=== PATIENT | female | born 1930 | race Caucasian/White ===

== ENCOUNTER 2017-01-31 17:19 | Inpatient (IN) | payer MEDICARE ==
[2017-01-31] MEDS ORDERED: SODIUM CHLORIDE 0.9% 1,000 ML IV ONE ×2 (17:36)
[2017-01-31] MEDS ORDERED: LORazepam 2 MG/ML INJ IV STA (17:38)
--- NOTE | 2017-01-31 17:42 | ED ---
Fall HPI - General Source: patient, family, EMS, RN notes reviewed, old records reviewed Mode of arrival: ambulatory <Yumiko Copeland - Last Filed: 02/01/17 02:35> <GeoffreyEmil Gayle - Last Filed: 02/01/17 04:44> - General Chief Complaint: Fall Stated Complaint: Fall Time Seen by Provider: 01/31/17 17:29 - History of Present Illness Initial Comments: This is an 86-year-old female presents emergency Department after a fall. Patient family reports that she fell in the afternoon however patient when she fell around midnight. Patient was found by her granddaughter. She states that there is no loss conscious. She did hit her head. Patient's family reports that she hasn't been taking her medications as she is supposed to. She does have a history of a pacemaker and a cardiac valve replacement. Patient states that she feels very nervous and she cannot breathe. Upon return to emergency room and she was placed in a c-collar. Patient became claustrophobic and shortness of breath due to the c-collar being placed on her neck. At this time I did assess patient and reviewed the rigid c-collar into a soft collar for patient's safety. Also relates that she's had episodes of diarrhea and complains of some abdominal pain. She reports that when she fell she also hit her right shoulder.Patient denies any recent fever, chills, shortness of breath , chest pain, nausea vomiting, numbness or tingling, dysuria or hematuria, constipation or diarrhea, headaches or visual changes, or any other current symptoms (Yumiko Copeland) - Related Data Home Medications Medication Instructions Recorded Confirmed Aspirin 81 mg PO DAILY 04/16/14 01/31/17 Furosemide [Lasix] 40 mg PO DAILY 04/16/14 01/31/17 Lisinopril [Zestril] 5 mg PO DAILY 04/16/14 01/31/17 Metoprolol Tartrate 50 mg PO BID 04/16/14 01/31/17 Naproxen Sodium [Aleve] 440 mg PO DAILY 04/16/14 01/31/17 Simvastatin 20 mg PO DAILY 04/16/14 01/31/17 Cholecalciferol [Vitamin D3] 1,000 unit PO DAILY 01/31/17 01/31/17 Loperamide [Imodium] 2 mg PO BID 01/31/17 01/31/17 glipiZIDE [Glucotrol] 5 mg PO AC-BID 01/31/17 01/31/17 Allergies Allergy/AdvReac Type Severity Reaction Status Date / Time Penicillins Allergy Swelling Verified 01/31/17 17:45 adhesive AdvReac Unknown Verified 01/31/17 17:45 Review of Systems ROS Other: All systems not noted in ROS Statement are negative. <Yumiko Copeland - Last Filed: 02/01/17 02:35> ROS Other: All systems not noted in ROS Statement are negative. <GeoffreyEmil Gayle - Last Filed: 02/01/17 04:44> ROS Statement: Those systems with pertinent positive or pertinent negative responses have been documented in the HPI. Past Medical History Past Medical History: COPD, Diabetes Mellitus, Hyperlipidemia, Hypertension Additional Past Medical History / Comment(s): 04/20/14 Pt here today for generator change permanent pacemaker. Other HX: Type [address] BELTRÁN H&P, some short term memory issues. History of Any Multi-Drug Resistant Organisms: None Reported Past Surgical History: Appendectomy, Hernia Repair, Hysterectomy, Joint Replacement, Orthopedic Surgery, Pacemaker Additional Past Surgical History / Comment(s): 04/20/14 Generator change pacemaker. 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 <Yumiko Copeland - Last Filed: 02/01/17 02:35> General Exam Limitations: altered mental status General appearance: alert, in no apparent distress, other Head exam: Present: atraumatic, normocephalic, normal inspection Eye exam: Present: normal appearance, PERRL, EOMI. Absent: scleral icterus, conjunctival injection, periorbital swelling ENT exam: Present: normal exam, normal oropharynx, mucous membranes moist Neck exam: Present: normal inspection. Absent: tenderness, meningismus, lymphadenopathy Respiratory exam: Present: normal lung sounds bilaterally. Absent: respiratory distress, wheezes, rales, rhonchi, stridor Cardiovascular Exam: Present: regular rate, normal rhythm, normal heart sounds. Absent: systolic murmur, diastolic murmur, rubs, gallop, clicks GI/Abdominal exam: Present: soft, tenderness (diffuse abdominal tenderness), normal bowel sounds. Absent: distended, guarding, rebound, rigid Extremities exam: Present: normal inspection, full ROM, normal capillary refill , other. Absent: tenderness, pedal edema, joint swelling, calf tenderness Right Shoulder Exam: Present: normal inspection, full ROM, tenderness (to palpation of humerus. Patient has had previous surgery) Upper Arm exam: Present: normal inspection, full ROM Elbow exam: Present: normal inspection, full ROM Forearm Wrist exam: Present: normal inspection, full ROM Hand Wrist exam: Present: normal inspection, full ROM Neuro motor exam: Present: wrist extension intact, thumb opposition intact, thumb IP flexion intact, thumb adduction intact, fingers 2-5 abduction intact Back exam: Present: normal inspection, full ROM Neurological exam: Present: alert, oriented X3, CN II-XII intact Psychiatric exam: Present: normal affect, normal mood Skin exam: Present: warm, dry, intact, normal color. Absent: rash <Yumiko Copeland - Last Filed: 02/01/17 02:35> <Emil Hale - Last Filed: 02/01/17 04:44> - General Exam Comments Initial Comments: This is an 86-year-old female. (Yumiko Copeland) Course <Yumiko Copeland - Last Filed: 02/01/17 02:35> <Emil Hale - Last Filed: 02/01/17 04:44> Vital Signs 01/31/17 01/31/17 17:24 18:31 Temperature 98.7 F Pulse Rate 98 93 Respiratory 25 H 20 Rate Blood Pressure 134/99 136/85 O2 Sat by Pulse 99 97 Oximetry - Reevaluation(s) Reevaluation #1: 01/31/17 20:03 At this time patient was reevaluated. She is resting comfortably in bed. Daughter reports that she's been complaining of some right shoulder pain. When I did examine the patient's abdomen she does jump due to pain 2. Given white count elevation I'll do CT of the pelvis. (DinorahYumiko) Medical Decision Making - Lab Data Result diagrams: 01/31/17 18:13 01/31/17 18:13 - Radiology Data Radiology results: report reviewed <Yumiko Copeland - Last Filed: 02/01/17 02:35> - Lab Data Result diagrams: 01/31/17 18:13 01/31/17 18:13 <Emil Hale - Last Filed: 02/01/17 04:44> - Medical Decision Making This is an 86-year-old feel presenting to emergency Department after a fall. Unable to determine the exact time the patient fell. She reports she felt somewhat dizzy. Apparently she has not been taking her medications as prescribed patient does have history of dementia.. Upon arriving to emergency Department patient was placed in a c-collar. She was having significant anxiety attack due to the c-collar being around her neck. She did to a soft collar. Patient underwent CT brain and C-spine which was negative for any acute process, c-collar was then removed. Patient's EKG shows a paced rhythm. Cardiac enzymes were also reviewed to be normal. She does have a mild elevation in her white blood cell count of 12.8. I went to reexamine the patient she did start to complain of some abdominal pain. CT abdomen and pelvis was completed. Some showing some signs of colitis. Patient has had a history of diarrhea. As x-ray was reviewed and discussed with some signs of heart failure. BNP obtained. Patient case assessment Dr. Lofton. [facility] feels appropriate to admit the patient with IV hydration for dehydration, dizziness and further evaluation. Discussed with the family that she likely will need placement to a rehab facility as she seems that she is unable to care on her own. (Yumiko Copeland) 86-year-old female with history of dementia presents status post fall. Patient does complain of some lightheadedness. According to the patient's family she does not been able to care for herself well, they're uncertain how much she is eating and drinking on a daily basis. They to visit her regularly. Patient will be placed in observation for rehydration and reevaluation. Diagnosis: Fall , near syncope, dehydration. (Helmreich,Emil N) - Lab Data Lab Results 01/31/17 01/31/17 01/31/17 Range/Units 18:13 18:13 18:13 WBC 12.7 H (3.8-10.6) k/uL RBC 5.45 H (3.80-5.40) m/uL Hgb 15.7 (11.4-16.0) gm/dL Hct 50.4 H (34.0-46.0) % MCV 92.6 (80.0-100.0) fL MCH 28.9 (25.0-35.0) pg MCHC 31.2 (31.0-37.0) g/dL RDW 15.0 (11.5-15.5) % Plt Count 262 (150-450) k/uL Neutrophils % 82 % Lymphocytes % 11 % Monocytes % 4 % Eosinophils % 1 % Basophils % 1 % Neutrophils # 10.4 H (1.3-7.7) k/uL Lymphocytes # 1.4 (1.0-4.8) k/uL Monocytes # 0.6 (0-1.0) k/uL Eosinophils # 0.1 (0-0.7) k/uL Basophils # 0.1 (0-0.2) k/uL PT 11.3 (9.0-12.0) sec INR 1.1 (<1.2) APTT 21.6 L (22.0-30.0) sec Sodium 140 (137-145) mmol/L Potassium 4.2 (3.5-5.1) mmol/L Chloride 105 (98-107) mmol/L Carbon Dioxide 21 L (22-30) mmol/L Anion Gap 14 mmol/L BUN 12 (7-17) mg/dL Creatinine 0.90 (0.52-1.04) mg/dL Est GFR (MDRD) Af Amer >60 (>60 ml/min/1.73 sqM) Est GFR (MDRD) Non-Af 59 (>60 ml/min/1.73 sqM) Glucose 151 H (74-99) mg/dL Calcium 9.8 (8.4-10.2) mg/dL Magnesium 1.7 (1.6-2.3) mg/dL Total Bilirubin 1.8 H (0.2-1.3) mg/dL AST 22 (14-36) U/L ALT 35 (9-52) U/L Alkaline Phosphatase 94 (38-126) U/L Total Creatine Kinase (30-135) U/L CK-MB (CK-2) (0.0-2.4) ng/mL CK-MB (CK-2) Rel Index Troponin I (0.000-0.034) ng/mL NT-Pro-B Natriuret Pep pg/mL Total Protein 6.4 (6.3-8.2) g/dL Albumin 4.0 (3.5-5.0) g/dL Urine Color Urine Appearance (Clear) Urine pH (5.0-8.0) Ur Specific [place] (1.001-1.035) Urine Protein (Negative) Urine Glucose (UA) (Negative) Urine Ketones (Negative) Urine Blood (Negative) Urine Nitrite (Negative) Urine Bilirubin (Negative) Urine Urobilinogen (<2.0) mg/dL Ur Leukocyte Esterase (Negative) 01/31/17 01/31/17 01/31/17 Range/Units 18:13 18:13 18:30 WBC (3.8-10.6) k/uL RBC (3.80-5.40) m/uL Hgb (11.4-16.0) gm/dL Hct (34.0-46.0) % MCV (80.0-100.0) fL MCH (25.0-35.0) pg MCHC (31.0-37.0) g/dL RDW (11.5-15.5) % Plt Count (150-450) k/uL Neutrophils % % Lymphocytes % % Monocytes % % Eosinophils % % Basophils % % Neutrophils # (1.3-7.7) k/uL Lymphocytes # (1.0-4.8) k/uL Monocytes # (0-1.0) k/uL Eosinophils # (0-0.7) k/uL Basophils # (0-0.2) k/uL PT (9.0-12.0) sec INR (<1.2) APTT (22.0-30.0) sec Sodium (137-145) mmol/L Potassium (3.5-5.1) mmol/L Chloride (98-107) mmol/L Carbon Dioxide (22-30) mmol/L Anion Gap mmol/L BUN (7-17) mg/dL Creatinine (0.52-1.04) mg/dL Est GFR (MDRD) Af Amer (>60 ml/min/1.73 sqM) Est GFR (MDRD) Non-Af (>60 ml/min/1.73 sqM) Glucose (74-99) mg/dL Calcium (8.4-10.2) mg/dL Magnesium (1.6-2.3) mg/dL Total Bilirubin (0.2-1.3) mg/dL AST (14-36) U/L ALT (9-52) U/L Alkaline Phosphatase (38-126) U/L Total Creatine Kinase 88 (30-135) U/L CK-MB (CK-2) 1.2 (0.0-2.4) ng/mL CK-MB (CK-2) Rel Index 1.4 Troponin I 0.014 (0.000-0.034) ng/mL NT-Pro-B Natriuret Pep 814 pg/mL Total Protein (6.3-8.2) g/dL Albumin (3.5-5.0) g/dL Urine Color Yellow Urine Appearance Clear (Clear) Urine pH 5.5 (5.0-8.0) Ur Specific [place] 1.014 (1.001-1.035) Urine Protein Negative (Negative) Urine Glucose (UA) Negative (Negative) Urine Ketones 1+ H (Negative) Urine Blood Negative (Negative) Urine Nitrite Negative (Negative) Urine Bilirubin Negative (Negative) Urine Urobilinogen <2.0 (<2.0) mg/dL Ur Leukocyte Esterase Negative (Negative) 01/31/17 18:07 EKG shows a ventricular paced rhythm. Ventricular rate 90 beats per. We're unable to her milliseconds. QRS ratio 70 ms. QT QTc is 452 ms. (Yumiko Copeland) - Radiology Data Multiple areas of colonic wall thickening correlate for colitis. Uncomplicated diverticulosis;. Hepatomegaly and fatty infiltration of the liver. Multiple small lesions within the left kidney likely representing cysts. This could be From ultrasound. Fatty application of the pancreas. Small mobile chlorinating fat only. Moderate level of scoliosis noted understands in the spine. Her sed rate is evidence of heart failure. Pelvis x-ray was negative for any acute Valley's. Right shoulder x-ray was reviewed and shows no evidence of any abnormalities. Evidence of previous surgical changes. (Yumiko Copeland) Disposition Time of Disposition: 22:19 <Yumiko Copeland - Last Filed: 02/01/17 02:35> <Emil Hale - Last Filed: 02/01/17 04:44> Clinical Impression: Dizziness, Falls, Dehydration, Near syncope Disposition: ADMITTED IP TO THIS [facility] Condition: Stable
[2017-01-31 18:29] LABS: Basophils # (A) 0.1 k/uL (0-0.2); Basophils % (A) 1 %; CH 30.6; CHCM 33.3; Eosinophils # (A) 0.1 k/uL (0-0.7); Eosinophils % (A) 1 %; HCT 50.4 % (34.0-46.0); HDW 2.62; HGB 15.7 gm/dL (11.4-16.0); Luc # (Auto) 0.14; Luc % (Auto) 1; Lymphocytes # (A) 1.4 k/uL (1.0-4.8); Lymphocytes % (A) 11 %; MCH 28.9 pg (25.0-35.0); MCHC 31.2 g/dL (31.0-37.0); MCV 92.6 fL (80.0-100.0); Mean Platelet Volume 9.6; Monocytes # (A) 0.6 k/uL (0-1.0); Monocytes % (A) 4 %; Neutrophils # (A) 10.4 k/uL (1.3-7.7); Neutrophils % (A) 82 %; RBC 5.45 m/uL (3.80-5.40); WBC 12.7 k/uL (3.8-10.6); WBC (Perox) 9.72
[2017-01-31 18:35] LABS: ALT 35 U/L (9-52); AST 22 U/L (14-36); Alkaline Phosphatase 94 U/L (38-126); Anion Gap 14 mmol/L; Blood Urea Nitrogen 12 mg/dL (7-17); Calcium 9.8 mg/dL (8.4-10.2); Carbon Dioxide 21 mmol/L (22-30); Chloride 105 mmol/L (98-107); Glucose 151 mg/dL (74-99); Magnesium 1.7 mg/dL (1.6-2.3); Non-African American GFR(MDRD) 59 (>60 ml/min/1.73 sqM); Potassium 4.2 mmol/L (3.5-5.1); Sodium 140 mmol/L (137-145); Total Bilirubin 1.8 mg/dL (0.2-1.3); Total Protein 6.4 g/dL (6.3-8.2)
[2017-01-31 18:36] LABS: INR 1.1 (<1.2); Prothrombin Time 11.3 sec (9.0-12.0)
[2017-01-31 18:46] LABS: Appearance,Urine Clear (Clear); Bilirubin,Urine Negative (Negative); Glucose,Urine (UA) Negative (Negative); Ketones,Urine 1+ (Negative); Leukocyte Esterase,Urine Negative (Negative); Nitrite,Urine Negative (Negative); PH, Urine 5.5 (5.0-8.0); Protein,Urine Negative (Negative); Specific Gravity,Urine 1.014 (1.001-1.035); UA Billing (MACRO vs. MICRO) CHEM; Urobilinogen,Urine <2.0 mg/dL (<2.0)
[2017-01-31 19:00] LABS: Creatine Kinase MB 1.2 ng/mL (0.0-2.4); Partial Thromboplastin Time 21.6 sec (22.0-30.0); Troponin I 0.014 ng/mL (0.000-0.034)
--- NOTE | 2017-01-31 19:16 | XR ---
EXAMINATION TYPE: XR chest 2V DATE OF EXAM: 01/31/2017 HISTORY: fall. REFERENCE: NONE. FINDINGS: There is a bipolar pacemaker place on the left. The heart is enlarged. There is vascular congestion and pulmonary edema. There is been a midline sternotomy. IMPRESSION: FINDINGS MOST CONSISTENT WITH CONGESTIVE HEART FAILURE.
--- NOTE | 2017-01-31 19:16 | XR ---
EXAMINATION TYPE: XR pelvis AP view , ONE VIEW DATE OF EXAM ORDERED: 01/31/2017 HISTORY: Pain. COMPARISON: None. FINDINGS: There are degenerative changes in the hips. No fracture or dislocation is seen. Metallic c lips are seen overlying the right inguinal region. There are degenerative changes within the spine. IMPRESSION: NO ACUTE OSSEOUS LESION.
--- NOTE | 2017-01-31 19:35 | CT ---
EXAMINATION TYPE: CT brain cynthia smith DATE OF EXAM: 01/31/2017 COMPARISON: NONE HISTORY: Fall, right sided head injury. Confusion. CT DLP: 1639.00 mGycm Automated exposure control for dose reduction was used. TECHNIQUE: CT scan of the brain and cervical spine are performed without contrast. FINDINGS: Brain: There are generalized changes of sulcal prominence and ventriculomegaly, compatible with atrop hic change. There is diffuse periventricular white matter lucency, compatible with chronic white matter ischemic change. There is no acute focal lesion, mass effect or midline shift identified. I do not see evidenc e of intracranial blood. There is minimal mucosal thickening involving one of the posterior ethmoid a ir cells on the left. The mastoid air cells are clear. No depressed skull fracture is seen. CERVICAL SPINE: Visualized portions of the lungs are clear. Prevertebral soft tissues are normal. Vertebral body height is maintained. There is a minimal degenerative grade 1 spondylolisthesis of C6 on C7. Alignment is otherwise maintained.. Atlantoaxial relationships are normal. There is diffuse degenerative disc disease most marked at C5-6. There is mild, diffuse uncovertebral joint disease. There is mild facet arthropathy at C3-4 and C4-5. There is mild intervertebral foramin al narrowing on the left at C5-6. No protrusions are seen. No fractures are seen. IMPRESSION: 1. NO ACUTE INTRACRANIAL ABNORMALITY. 2. ATROPHIC CHANGE. 3. CHRONIC WHITE MATTER ISCHEMIC CHANGE. 4. MINIMAL LEFT-SIDED ETHMOIDAL SINUS MUCOSAL DISEASE. 5. NO CERVICAL FRACTURE. 6. DEGENERATIVE CHANGES WITHIN THE CERVICAL SPINE.
[2017-01-31] MEDS ORDERED: RX INFO: IV CONTRAST WAS GIVEN 1 EACH MISC MISCELLANE PRN (20:02)
--- NOTE | 2017-01-31 20:52 | XR ---
EXAMINATION TYPE: XR shoulder complete RT , 3 VIEWS DATE OF EXAM ORDERED: 01/31/2017 HISTORY: Pain. COMPARISON: None. FINDINGS: No fracture or dislocation is seen. There is postsurgical change. There is remodeling alba ges in the humeral head. IMPRESSION: 1. NO ACUTE OSSEOUS LESION. 2. POSTSURGICAL CHANGE. 3. OSTEOARTHRITIS.
[2017-01-31] MEDS ORDERED: MORPHINE SULFATE 4 MG/ML SYRINGE IVP STA (21:29)
--- NOTE | 2017-01-31 21:49 | CT ---
EXAMINATION TYPE: CT abdomen pelvis w con DATE OF EXAM: 01/31/2017 REFERENCE: NONE HISTORY: fall, pain HISTORY: Fall today. Right lower quadrant pain. CT DLP: 1605.00 mGy Automated exposure control for dose reduction was used. TECHNIQUE: Helical acquisition through the abdomen and pelvis was obtained following the oral ingesti on of without Oral Contrast and following intravenous administration of 80 mL of Visipaque 320. The d sudha was reformatted in axial, coronal and sagittal projections. FINDINGS: There is mild dependent atelectasis at the lung bases. The heart is upper limits of normal in size. There is a pacemaker in place. There is coronary artery and other vascular calcifications p resent. Within the abdomen, the liver is enlarged measuring 21 cm. Is fatty infiltrated. The gallbladder is b een removed. The spleen is unremarkable. Both adrenal glands are normal. There is a small, subcentimeter low attenuating lesion in the lower pole of the left kidney. There ar e several even smaller lesions in the lower pole. These likely represent cysts but are too small to c haracterize accurately. There is marked fatty infiltration of the pancreas. There is no significant retroperitoneal, iliac or inguinal adenopathy. The bladder is unremarkable. Uterus and ovaries are not visualized. There is diverticular change involving the sigmoid colon. There is diffuse colonic thickening involvi ng the sigmoid colon and parts of the descending colon and most of the transverse colon. The appendix is not visualized. Small bowel loops are normal. There is no free fluid and no free air. There is a tiny umbilical hernia containing fat only with a 4 mm mouth. There is a moderate levoscoliosis. There is degenerative disc disease and hypertrophic spondylosis as well as facet arthropathy. No bony destructive lesion is seen. There has been a midline sternotomy. IMPRESSION: 1. MULTIPLE AREAS OF COLONIC WALL THICKENING. PLEASE CORRELATE FOR COLITIS. 2. UNCOMPLICATED DIVERTICULOSIS OF THE SIGMOID COLON. 3. HEPATOMEGALY AND FATTY INFILTRATION OF THE LIVER. 4. MULTIPLE SMALL LESIONS WITHIN THE LEFT KIDNEY, LIKELY REPRESENTING CYSTS. THIS COULD BE CONFIRMED WITH ULTRASOUND. 5. FATTY INFILTRATION OF THE PANCREAS. 6. SMALL UMBILICAL HERNIA CONTAINING FAT ONLY. 7. MODERATE LEVOSCOLIOSIS AND DEGENERATIVE CHANGE WITHIN THE SPINE.
[2017-01-31] MEDS ORDERED: LORazepam 2 MG/ML INJ IV PRN (22:25)
[2017-01-31] MEDS ORDERED: MORPHINE SULFATE 4 MG/ML SYRINGE IV PRN (22:25)
[2017-01-31] MEDS ORDERED: NALOXONE 0.4 MG/ML 1 ML VIAL IV PRN (22:25)
[2017-01-31] MEDS ORDERED: KETOROLAC 30 MG/ML 1 ML VIAL IVP PRN (22:25)
[2017-01-31] MEDS ORDERED: IBUPROFEN 400 MG TAB PO PRN (22:25)
[2017-01-31] MEDS: SODIUM CHLORIDE 0.9% 1,000 ML IV SCH (23:36)
[2017-02-01] MEDS: SODIUM CHLORIDE 0.9% 1,000 ML IV SCH ×2 (05:23→20:06)
[2017-02-01 07:24] LABS: Glucose,Whole Blood 124 mg/dL (75-99)
[2017-02-01] MEDS ORDERED: glipiZIDE 5 MG TAB PO SCH (07:30)
[2017-02-01] MEDS: FUROSEMIDE 40 MG TAB PO SCH (08:28)
[2017-02-01] MEDS: LISINOPRIL 5 MG TAB PO SCH (08:29)
[2017-02-01] MEDS: ATORVASTATIN 10 MG TAB PO SCH (08:29)
[2017-02-01] MEDS: ASPIRIN 81 MG PO SCH (08:29)
[2017-02-01] MEDS: LOPERAMIDE 2 MG CAP PO SCH ×2 (08:29→21:27)
[2017-02-01] MEDS: METOPROLOL TARTRATE 50 MG TAB PO SCH ×2 (08:29→21:27)
[2017-02-01] MEDS: CHOLECALCIFEROL 1,000 UNIT TAB PO SCH (08:29)
[2017-02-01 08:53] VITALS: BMI 35.2
[2017-02-01] MEDS: ENOXAPARIN 40 MG/0.4 ML SYRINGE SQ SCH (11:51)
[2017-02-01 12:12] LABS: Glucose,Whole Blood 66 mg/dL (75-99)
[2017-02-01 12:24] LABS: Glucose,Whole Blood 76 mg/dL (75-99)
--- NOTE | 2017-02-01 14:06 | HP ---
HISTORY AND PHYSICAL DATE OF ADMISSION: 01/31/2017 DATE OF SERVICE: 02/01/2017 PRESENTING COMPLAINT: Fall. HISTORY OF PRESENTING COMPLAINT: A very pleasant, 86-year-old patient of Dr. Parker. History is obtained by the daughter at the bedside. Chronic stable medical conditions include COPD, diabetes, hyperlipidemia, hypertension. The patient lives by herself. Has a walker and cane at home, but walks on her own. The patient is not sure why she is here but she had fallen down, found by the granddaughter on the floor. The patient is a very pleasant, but a poor historian. Memory is not good. Daughter does state that her long-term memory is good, but short-term memory is very poor. Patient has some pain in the right shoulder. Denies any chest pain or palpitations. No focal weakness. REVIEW OF SYSTEMS: CONSTITUTIONAL: None. HEENT: Decreased hearing. RESPIRATORY: None. CARDIOVASCULAR: No chest pain. GASTROINTESTINAL: None GENITOURINARY: None. MUSCULOSKELETAL: Aches and pains in different joints. Some in the right shoulder. DERMATOLOGICAL: None. HEMATOLOGIC: None. LYMPHATIC: None. PSYCHIATRY: Forgetful. NEUROLOGICAL: Baseline on her gait. PAST MEDICAL HISTORY: COPD, diabetes, hyperlipidemia, hypertension. PAST SURGICAL HISTORY: Appendectomy, hernia repair, hysterectomy, joint replacement, bilateral total knee, right shoulder screws. SOCIAL HISTORY: Patient lives alone. No smoking. Alcohol rarely. FAMILY HISTORY: Coronary artery disease. HOME MEDICATIONS: 1. Glucotrol 5 mg p.o. b.i.d. 2. Simvastatin 20 mg p.o. daily. 3. Aleve 440 mg p.o. daily. 4. Metoprolol 50 mg p.o. b.i.d. 5. Imodium 2 mg p.o. b.i.d. 6. Zestril 5 mg p.o. daily. 7. Lasix 40 mg p.o. daily. 8. Vitamin D3, 1000 units p.o. daily. 9. Aspirin 81 mg p.o. daily. ALLERGIES: Allergies to PENICILLIN and ADHESIVE. PHYSICAL EXAMINATION: On examination, vital signs on presentation, temperature 98.7, pulse 98, respirations 25, blood pressure 134/99 pulse ox 99% on 2 L. GENERAL APPEARANCE: Well built, BMI 35.3. Sitting on the edge of bed. Comfortable. Smiling. EYES: Pupils equal. Conjunctivae normal. HENT: Oral cavity normal. NECK: JVD not raised. Mass not palpable. RESPIRATORY: Effort normal. LUNGS: Slightly decreased breath sounds. CARDIOVASCULAR: First and second sounds normal. No edema. ABDOMEN: Soft, nontender. Liver and spleen not palpable. LYMPHATIC: No lymph nodes palpable in the neck and axillae. PSYCHIATRY: Patient after some thinking knows that she in the hospital. Does not know the name. Not sure about the year, not sure about the season. Keeps smiling and laughing while talking. NEUROLOGICAL: Pupils equal. No facial asymmetry. Moving all 4 limbs. MUSCULOSKELETAL: Evidence of osteoarthritis in different joints. INVESTIGATIONS: White count 12.7, hemoglobin 15.7. Potassium 4.2. BUN and creatinine are normal. Accu- Cheks just revealed 66 and 76. ASSESSMENT: 1. Episode of patient falling down. The patient at baseline is unsteady probably from arthritis, hypoglycemia is in the differential. 2. Chronic obstructive pulmonary disease. 3. Diabetes mellitus type 2, on oral hypoglycemic. 4. Hyperlipidemia. 5. Essential hypertension. 6. Gait dysfunction. 7. Alzheimer's dementia, late onset type. PLAN: Will cut back patient's Glucotrol to 5 mg once a day. Other medications are to be continued. Did talk to her daughter at length. Patient will probably need a supervised setting. Will do a bedside cogwheel test. PT, OT seeing the patient. hot worker is involved. MMODL / IJN: [id number] /
[2017-02-01 17:18] LABS: Glucose,Whole Blood 103 mg/dL (75-99)
[2017-02-01 22:31] LABS: Glucose,Whole Blood 120 mg/dL (75-99)
[2017-02-02] MEDS: SODIUM CHLORIDE 0.9% 1,000 ML IV SCH ×4 (06:15→21:13)
[2017-02-02 07:17] LABS: Glucose,Whole Blood 127 mg/dL (75-99)
[2017-02-02] MEDS: CHOLECALCIFEROL 1,000 UNIT TAB PO SCH (09:23)
[2017-02-02] MEDS: ATORVASTATIN 10 MG TAB PO SCH (09:23)
[2017-02-02] MEDS: glipiZIDE 5 MG TAB PO SCH (09:23)
[2017-02-02] MEDS: ASPIRIN 81 MG PO SCH (09:23)
[2017-02-02] MEDS: METOPROLOL TARTRATE 50 MG TAB PO SCH ×2 (09:24→21:12)
[2017-02-02] MEDS: ENOXAPARIN 40 MG/0.4 ML SYRINGE SQ SCH (09:24)
[2017-02-02] MEDS: FUROSEMIDE 40 MG TAB PO SCH (09:24)
[2017-02-02] MEDS: LOPERAMIDE 2 MG CAP PO SCH ×2 (09:27→21:13)
[2017-02-02] MEDS: LISINOPRIL 5 MG TAB PO SCH (09:27)
[2017-02-02 11:31] LABS: Glucose,Whole Blood 103 mg/dL (75-99)
[2017-02-02 16:30] LABS: Glucose,Whole Blood 99 mg/dL (75-99)
--- NOTE | 2017-02-02 16:55 | P.PN ---
Progress Note - Text Progress Note Date: 02/02/17 DATE OF SERVICE: 02/02/2017 PRESENTING COMPLAINT: fall HISTORY OF PRESENT ILLNESS: 86-year-old patient who presented after being found by her granddaughter after a fall. Admitted for the same INTERVAL HISTORY: 02/02/2017: lying in bed appears comfortable.vital signs stable, Ambulatory with some assistance to and from the bathroom. tolerating her diet eating between 50 and 75% of her meals, Evaluated by physical therapy and would benefit from continued therapy at a subacute rehab or inpatient rehab prior to being back at home alone. Social work is submitted request to [facility] for placement this will not happen until Saturday. REVIEW OF SYSTEMS: Done for constitutional ,cardiovascular, GI, pulmonary with relevant findings as above. CURRENT MEDICATIONS aspirin, Lipitor, Lovenox, Lasix, Glucotrol, Toradol,Zestril, Imodium, Ativan, Lopressor,normal saline. PHYSICAL EXAM VITAL SIGNS: temperature 98.3, pulse 70, respiratory rate 12, blood pressure 123/64, oxygen saturation 96% on room air. GENERAL APPEARANCE: Lying in bed, not in distress. EYES: Pupils equal. Conjunctiva normal. NECK: JVD not raised. Mass not palpable. RESPIRATORY: Respiratory effort normal. Lungs diminished to auscultation. CARDIOVASCULAR: First and second sounds normal. No edema. ABDOMEN: Soft. Liver and spleen not palpable. No tenderness. No mass palpable. PSYCHIATRY: Alert and oriented x3. Mood and affect normal. INVESTIGATIONS: Accu-Cheks noted ASSESSMENT: -falls possibly related to hypoglycemia, arthritis -Chronic obstructive pulmonary disease -Diabetes mellitus type 2 on oral hypoglycemics. -Hyperlipidemia. -Essential hypertension. -Gait dysfunction. -Alzheimer's dementia late onset type. PLAN: tinea current medication and treatment plan,physical therapy to work with patient while here, plan to send to [facility] once insurance authorization is been received.plan of care discussed with the patient at the bedside she is in agreement. We will follow closely. CREDIT ASSOCIATE statement: Patient was seen and examined by nurse practitioner Evita Lawton and all elements of the case discussed with attending Dr. Turcios
[2017-02-02 21:10] LABS: Glucose,Whole Blood 127 mg/dL (75-99)
--- NOTE | 2017-02-02 22:43 | PN ---
PROGRESS NOTE DATE OF SERVICE: 02/02/2017. ATTENDING NOTE: This patient was seen and examined by me. I discussed with my nurse practitioner, Ms. Lawton. The patient presented with fall and underlying dementia, was found to be hypoglycemic. Awaiting placement, comfortable. LUNGS: Clear. CARDIOVASCULAR: 1st and 2nd sounds normal. Temperature 98.3, blood pressure 123/64. Accu-Cheks did go down to 66 and 76. ASSESSMENT: Hypoglycemia due to oral hypoglycemic. The patient's dose of Glucotrol from admission already has been cut back. Follow Accu-Cheks. MMODL / IJN: [id number] /
[2017-02-03] MEDS: ACETAMINOPHEN TAB 325 MG TAB PO PRN (00:18)
[2017-02-03] MEDS: SODIUM CHLORIDE 0.9% 1,000 ML IV SCH ×3 (03:55→20:47)
[2017-02-03 06:56] LABS: Glucose,Whole Blood 122 mg/dL (75-99)
[2017-02-03 07:54] LABS: Basophils % (A) 0 %; CH 29.9; CHCM 33.8; Eosinophils # (A) 0.4 k/uL (0-0.7); Eosinophils % (A) 6 %; HCT 41.6 % (34.0-46.0); HDW 2.65; HGB 13.9 gm/dL (11.4-16.0); Luc # (Auto) 0.18; Luc % (Auto) 3; Lymphocytes # (A) 1.6 k/uL (1.0-4.8); Lymphocytes % (A) 24 %; MCH 29.7 pg (25.0-35.0); MCHC 33.5 g/dL (31.0-37.0); MCV 88.8 fL (80.0-100.0); Mean Platelet Volume 10.2; Monocytes # (A) 0.5 k/uL (0-1.0); Monocytes % (A) 8 %; Neutrophils % (A) 60 %; RBC 4.68 m/uL (3.80-5.40); WBC 6.7 k/uL (3.8-10.6); WBC (Perox) 7.02
[2017-02-03 08:01] LABS: Anion Gap 7 mmol/L; Blood Urea Nitrogen 9 mg/dL (7-17); Calcium 8.5 mg/dL (8.4-10.2); Carbon Dioxide 21 mmol/L (22-30); Chloride 110 mmol/L (98-107); Glucose 128 mg/dL (74-99); Non-African American GFR(MDRD) >60 (>60 ml/min/1.73 sqM); Potassium 3.8 mmol/L (3.5-5.1); Sodium 138 mmol/L (137-145)
[2017-02-03] MEDS: ATORVASTATIN 10 MG TAB PO SCH (08:23)
[2017-02-03] MEDS: CHOLECALCIFEROL 1,000 UNIT TAB PO SCH (08:23)
[2017-02-03] MEDS: LISINOPRIL 5 MG TAB PO SCH (08:23)
[2017-02-03] MEDS: glipiZIDE 5 MG TAB PO SCH (08:23)
[2017-02-03] MEDS: FUROSEMIDE 40 MG TAB PO SCH (08:23)
[2017-02-03] MEDS: METOPROLOL TARTRATE 50 MG TAB PO SCH ×2 (08:23→20:46)
[2017-02-03] MEDS: ASPIRIN 81 MG PO SCH (08:23)
[2017-02-03] MEDS: ENOXAPARIN 40 MG/0.4 ML SYRINGE SQ SCH (08:24)
[2017-02-03] MEDS: LOPERAMIDE 2 MG CAP PO SCH ×2 (08:25→20:46)
[2017-02-03 08:50] LABS: Vitamin B12 174 pg/mL
[2017-02-03 11:22] LABS: Glucose,Whole Blood 145 mg/dL (75-99)
[2017-02-03] MEDS: INSULIN LISPRO (humaLOG) 300 UNIT/3 ML VIAL SQ SCH ×3 (13:52→20:46)
--- NOTE | 2017-02-03 15:39 | P.PN ---
Progress Note - Text Progress Note Date: 02/03/17 DATE OF SERVICE: 02/03/2017 PRESENTING COMPLAINT: fall HISTORY OF PRESENT ILLNESS: 86-year-old patient who presented after being found by her granddaughter after a fall. Admitted for the same INTERVAL HISTORY: 02/03/2017: patient seen in follow-up,no acute overnight eventsLying in bed appears comfortable vital signs stable, ambulatory with some assistance to and from the bathroom. Tolerating her diet eating between 75 and 100% of her meals. Agreeable to work with physical therapy. 02/02/2017: lying in bed appears comfortable.vital signs stable, Ambulatory with some assistance to and from the bathroom. tolerating her diet eating between 50 and 75% of her meals, Evaluated by physical therapy and would benefit from continued therapy at a subacute rehab or inpatient rehab prior to being back at home alone. Social work is submitted request to [facility] for placement this will not happen until Saturday. REVIEW OF SYSTEMS: Done for constitutional ,cardiovascular, GI, pulmonary with relevant findings as above. CURRENT MEDICATIONS aspirin, Lipitor, Lovenox, Lasix, Glucotrol, Toradol,Zestril, Imodium, Ativan, Lopressor,normal saline. PHYSICAL EXAM VITAL SIGNS: temperature 97.6, pulse 95, respiratory rate 14, blood pressure 153/74, oxygen saturation 96% on room air. GENERAL APPEARANCE: Lying in bed, not in distress. EYES: Pupils equal. Conjunctiva normal. NECK: JVD not raised. Mass not palpable. RESPIRATORY: Respiratory effort normal. Lungs diminished to auscultation. CARDIOVASCULAR: First and second sounds normal. No edema. ABDOMEN: Soft. Liver and spleen not palpable. No tenderness. No mass palpable. PSYCHIATRY: Alert and oriented x3. Mood and affect normal. INVESTIGATIONS: Accu-Cheks noted ASSESSMENT: -falls possibly related to hypoglycemia, arthritis -Chronic obstructive pulmonary disease -Diabetes mellitus type 2 on oral hypoglycemics. -Hyperlipidemia. -Essential hypertension. -Gait dysfunction. -Alzheimer's dementia late onset type. PLAN: Continue current medication and treatment plan,physical therapy to work with patient while here, plan to send to [facility] once insurance authorization is been received.plan of care discussed with the patient at the bedside she is in agreement. We will follow closely. RIFLE CASE REPAIRER statement: Patient was seen and examined by nurse practitioner Evita Lawton and all elements of the case discussed with attending Dr. Turcios
[2017-02-03 16:24] LABS: Glucose,Whole Blood 79 mg/dL (75-99)
[2017-02-03 20:19] LABS: Glucose,Whole Blood 146 mg/dL (75-99)
[2017-02-04 00:38] VITALS: RESP 16
--- NOTE | 2017-02-04 06:24 | PN ---
PROGRESS NOTE DATE OF SERVICE: 02/03/2017 ATTENDING NOTE: This patient was seen and examined by me. I discussed with my nurse practitioner, Ms. Lawton. This patient with dementia presented with a fall from felt to be hypoglycemia. Oral hypoglycemics have been scaled back. The patient doing better. Lying in bed, comfortable. PHYSICAL EXAMINATION: On examination, afebrile. Blood pressure 153/74. Accu-Cheks are noted. TSH and B12 came back normal. ASSESSMENT: Hypoglycemia from oral hypoglycemic, improving. Looking at patient going to the supervised setting tomorrow. MMODL / IJN: [id number] /
[2017-02-04 07:49] LABS: Glucose,Whole Blood 110 mg/dL (75-99)
[2017-02-04 08:34] VITALS: BP 129/74; PULSE 67; TEMP 97.7
[2017-02-04] MEDS: INSULIN LISPRO (humaLOG) 300 UNIT/3 ML VIAL SQ SCH ×2 (10:18→12:24)
[2017-02-04] MEDS: ASPIRIN 81 MG PO SCH (10:34)
[2017-02-04] MEDS: glipiZIDE 5 MG TAB PO SCH (10:34)
[2017-02-04] MEDS: CHOLECALCIFEROL 1,000 UNIT TAB PO SCH (10:34)
[2017-02-04] MEDS: ATORVASTATIN 10 MG TAB PO SCH (10:34)
[2017-02-04] MEDS: ENOXAPARIN 40 MG/0.4 ML SYRINGE SQ SCH (10:35)
[2017-02-04] MEDS: METOPROLOL TARTRATE 50 MG TAB PO SCH (10:35)
[2017-02-04] MEDS: FUROSEMIDE 40 MG TAB PO SCH (10:35)
[2017-02-04] MEDS: LISINOPRIL 5 MG TAB PO SCH (10:35)
[2017-02-04] MEDS: LOPERAMIDE 2 MG CAP PO SCH (10:37)
[2017-02-04] MEDS: SODIUM CHLORIDE 0.9% 1,000 ML IV SCH (10:37)
[2017-02-04] MEDS: ACETAMINOPHEN TAB 325 MG TAB PO PRN (10:39)
[2017-02-04 11:48] LABS: Glucose,Whole Blood 123 mg/dL (75-99)
--- NOTE | 2017-02-04 16:08 | P.DS ---
Providers Date of admission: 02/01/17 15:08 Expected date of discharge: 02/04/17 Attending physician: Kurt Turcios Primary care physician: [facility] Course: FINAL DIAGNOSES: -falls possibly related to hypoglycemia, arthritis -Chronic obstructive pulmonary disease -Diabetes mellitus type 2 on oral hypoglycemics. -Hyperlipidemia. -Essential hypertension. -Gait dysfunction. -Alzheimer's dementia late onset type HOSPTIAL COURSE: 86-year-old patient who presented after being found by her granddaughter after a fall. patient has been living by herself. Admitted for the same. home medications reordered IV fluids initiated, bedside mini cog test performed, physical and occupational therapy ordered. Consult social work placed for placement. In a nursing care facility. Patient's condition remained stable throughout her stay no acute events or changes to her condition. Tolerating her diet, ambulatory with some assistance, moving her bowels. PHYSICAL EXAM: CARDIOVASCULAR: first and second sound noted, no edema RESPIRATORY: respiratory effort normal, lung sounds clear to auscultation GI:abdomen soft nontender no guarding rigidity liver and spleen not palpable MUSKULOSKELETAL:slow shaky gait, requires walker use. NEUROLOGIC: dizziness present PSYCHIATRY: Alert and oriented 3, forgetful at times, mood and affect normal. Patient was seen and examined by nurse practitioner Evita Lawton in all elements of the case discussed with attending Dr. Turcios DISPOSITION:discharge to [facility] Patient Condition at Discharge: Stable Plan - Discharge Summary New Discharge Prescriptions: New Naproxen [Naprosyn] 250 mg PO BID PRN #1 tab PRN Reason: Pain Acetaminophen Tab [Tylenol Tab] 650 mg PO Q4H #1 tablet Continue Simvastatin 20 mg PO DAILY Metoprolol Tartrate 50 mg PO BID Lisinopril [Zestril] 5 mg PO DAILY Furosemide [Lasix] 40 mg PO DAILY Aspirin 81 mg PO DAILY Loperamide [Imodium] 2 mg PO BID Cholecalciferol [Vitamin D3] 1,000 unit PO DAILY Changed glipiZIDE [Glucotrol] 5 mg PO DAILY #0 Discontinued Naproxen Sodium [Aleve] 440 mg PO DAILY Discharge Medication List Aspirin 81 mg PO DAILY 04/16/14 [History] Furosemide [Lasix] 40 mg PO DAILY 04/16/14 [History] Lisinopril [Zestril] 5 mg PO DAILY 04/16/14 [History] Metoprolol Tartrate 50 mg PO BID 04/16/14 [History] Simvastatin 20 mg PO DAILY 04/16/14 [History] Cholecalciferol [Vitamin D3] 1,000 unit PO DAILY 01/31/17 [History] Loperamide [Imodium] 2 mg PO BID 01/31/17 [History] Acetaminophen Tab [Tylenol Tab] 650 mg PO Q4H #1 tablet 02/04/17 [Rx] Naproxen [Naprosyn] 250 mg PO BID PRN #1 tab 02/04/17 [Rx] glipiZIDE [Glucotrol] 5 mg PO DAILY #0 02/04/17 [Rx] Follow up Appointment(s)/Referral(s): Ronak Parker DO [Primary Care Provider] - 1-2 days Discharge Disposition: TRANSFER TO SNF/ECF
--- NOTE | 2017-02-06 06:34 | DS ---
DISCHARGE SUMMARY DATE OF SERVICE: 02/04/2017. ATTENDING NOTE: This patient was seen and examined by me on 02/04/2017. Discussed with my nurse practitioner, Ms. Lawton. This patient fell on the ground. Patient's Accu-Cheks were low. The patient's dose of oral hypoglycemic was cut back. The patient did not do well under mini cogwheel test, only getting 2 out of 3 words and not able to draw numbers on the clock. This was conveyed to the family. Overall prognosis is guarded. The patient's B12 and TSH were normal. Care was discussed with the family members at the bedside. Questions were answered. Discharge planning more than 35 minutes. MMODL / IJN: [id number] /
--- NOTE | 2017-02-24 23:27 | PN ---
PROGRESS NOTE ADDENDUM: DATE OF SERVICE: 02/03/17. EXAMINATION: Lungs slightly decreased breath sounds. Cardiovascular first and second sounds normal. Psych patient remains pleasantly confused, smiling. MMKENDAL / IJN: [id number] /
--- NOTE | 2017-02-25 05:48 | DS ---
DISCHARGE SUMMARY ADDENDUM TO DISCHARGE SUMMARY DATE OF SERVICE: 02/04/2017 ON EXAMINATION: LUNGS: Slightly decreased breath sounds. CARDIOVASCULAR: First and second sounds normal. Patient remains pleasantly confused. MANDY / IJN: [id number] /
== END 2017-02-04 14:40 | DRG 639 ==
LOC: EC 17:19 → 3OBS 22:26 → OBSVTOIN 02-01 15:08 → 3SUR 02-01 19:48 → 3OBS 02-01 20:22 → 3SUR 02-01 20:58
PROVIDERS: ADMIT Hospitalist; ATTEND Hospitalist
DX: E11.649 Type 2 diabetes mellitus with hypoglycemia without coma (principal); J44.9 Chronic obstructive pulmonary disease, unspecified; G30.1 Alzheimer's disease with late onset; F02.80 Dementia in other diseases classified elsewhere, unspecified severity, without behavioral disturbance, psychotic disturbance, mood disturbance, and anxiety; I10 Essential (primary) hypertension; E78.5 Hyperlipidemia, unspecified; R26.9 Unspecified abnormalities of gait and mobility; W19.XXXA Unspecified fall, initial encounter; M19.90 Unspecified osteoarthritis, unspecified site; F41.1 Generalized anxiety disorder; F40.240 Claustrophobia; E86.0 Dehydration; Z96.653 Presence of artificial knee joint, bilateral; Z79.899 Other long term (current) drug therapy; Z79.84 Long term (current) use of oral hypoglycemic drugs; Z79.82 Long term (current) use of aspirin; Z82.49 Family history of ischemic heart disease and other diseases of the circulatory system; Z95.0 Presence of cardiac pacemaker; Z95.2 Presence of prosthetic heart valve; Z91.81 History of falling; Z90.710 Acquired absence of both cervix and uterus; Z90.49 Acquired absence of other specified parts of digestive tract; Z87.19 Personal history of other diseases of the digestive system; Z91.14 Patient's other noncompliance with medication regimen
CPT/HCPCS: 36415; 70450; 71020; 72125; 72170; 74177; 80048; 80053; 81003; 82550; 82553; 82607; 83735; 83880; 84443; 84484; 85025; 85610; 85730; 93005; 96361; 96372; 96374; 96375; 99285

== ENCOUNTER 2017-02-08 17:06 | Emergency (ER) | payer MEDICARE ==
--- NOTE | 2017-02-08 17:31 | ED ---
Lower Extremity Injury HPI - General Stated Complaint: DVT Time Seen by Provider: 02/08/17 17:09 Source: patient, EMS, RN notes reviewed Mode of arrival: EMS Limitations: no limitations - History of Present Illness Initial Comments: This 86-year-old female presents emergency Department with chief complaint of left lower leg swelling. Patient was sent here via EMS from [facility] for a rule out DVT of her left lower leg. She's had increased swelling over the last few days and some mild discomfort. Patient states she has some redness her left foot but maybe worse than usual. she states she is safe to diabetic no open lesions sores. patient had laboratories today which was essentially unremarkable. patient denies any chest pain or shortness of breath. denies any history of dvts. - Related Data Home Medications Medication Instructions Recorded Confirmed Aspirin 81 mg PO HS 04/16/14 02/08/17 Furosemide [Lasix] 40 mg PO DAILY 04/16/14 02/08/17 Lisinopril [Zestril] 5 mg PO DAILY 04/16/14 02/08/17 Metoprolol Tartrate 50 mg PO BID 04/16/14 02/08/17 Simvastatin 20 mg PO HS 04/16/14 02/08/17 Cholecalciferol [Vitamin D3] 1,000 unit PO DAILY 01/31/17 02/08/17 Loperamide [Imodium] 2 mg PO BID 01/31/17 02/08/17 Caldesene Powder 81-15% 1 applic TOPICAL BID 02/08/17 02/08/17 Previous Rx's Medication Instructions Recorded Acetaminophen Tab [Tylenol Tab] 650 mg PO Q4H #1 tablet 02/04/17 Naproxen [Naprosyn] 250 mg PO BID PRN #1 tab 02/04/17 glipiZIDE [Glucotrol] 5 mg PO DAILY #0 02/04/17 Allergies Allergy/AdvReac Type Severity Reaction Status Date / Time Penicillins Allergy Swelling Verified 02/08/17 17:42 adhesive AdvReac Unknown Verified 02/08/17 17:42 Review of Systems ROS Statement: Those systems with pertinent positive or pertinent negative responses have been documented in the HPI. ROS Other: All systems not noted in ROS Statement are negative. Past Medical History Past Medical History: COPD, Diabetes Mellitus, Hyperlipidemia, Hypertension Additional Past Medical History / Comment(s): 04/20/14 Pt here today for generator change permanent pacemaker. Other HX: Type [address] BELTRÁN H&P, some short term memory issues. History of Any Multi-Drug Resistant Organisms: None Reported Past Surgical History: Appendectomy, Hernia Repair, Hysterectomy, Joint Replacement, Orthopedic Surgery, Pacemaker Additional Past Surgical History / Comment(s): 04/20/14 Generator change pacemaker. 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 General Exam Limitations: no limitations General appearance: alert, in no apparent distress Head exam: Present: atraumatic, normocephalic, normal inspection Respiratory exam: Present: normal lung sounds bilaterally. Absent: respiratory distress, wheezes, rales, rhonchi, stridor Cardiovascular Exam: Present: regular rate, normal rhythm, normal heart sounds. Absent: systolic murmur, diastolic murmur, rubs, gallop, clicks Extremities exam: Present: other (Left leg there is moderate swelling and minimal tenderness to the calf, there is mild rash the left foot, mild erythema , pulses equal bilaterally) Course Vital Signs 02/08/17 17:14 Temperature 97.4 F L Pulse Rate 80 Respiratory 18 Rate Blood Pressure 150/87 O2 Sat by Pulse 97 Oximetry Medical Decision Making - Medical Decision Making Ultrasound does not show an acute DVT. Patient does have mild swelling persists appears to be peripheral edema. Patient will be returned to [facility] advised to watch redness of the left foot. Disposition Clinical Impression: Left leg swelling Disposition: HOME SELF-CARE Condition: Stable Instructions: Leg Edema (ED) Additional Instructions: Please return to the Emergency Department if symptoms worsen or any other concerns. Referrals: Ronak Parker DO [Primary Care Provider] - 1-2 days Time of Disposition: 18:27
--- NOTE | 2017-02-08 18:18 | US ---
EXAMINATION TYPE: US venous doppler duplex LE LT DATE OF EXAM: 02/08/2017 6:07 PM COMPARISON: NONE CLINICAL HISTORY: Pain. Pain and edema left leg SIDE PERFORMED: left TECHNIQUE: The lower extremity deep venous system is examined utilizing real time linear array sonog lizbeth with graded compression, doppler sonography and color-flow sonography. VESSELS IMAGED: External Iliac Vein (EIV) Common Femoral Vein Deep Femoral Vein Greater Saphenous Vein * Femoral Vein Popliteal Vein Small Saphenous Vein * Proximal Calf Veins (* superficial vessels) Left Leg: Technical limitations, difficult to visualize popliteal vein, patient unable to tolerate c ompression at lower femoral vein. No evidence of DVT as visualized IMPRESSION: No evidence of deep venous thrombosis.
[2017-02-08 18:35] VITALS: BP 136/62; PULSE 62; RESP 17; TEMP 97.9
== END 2017-02-08 18:40 | disposition home or self-care (01) ==
LOC: EC 17:06
DX: M79.89 Other specified soft tissue disorders (principal); J44.9 Chronic obstructive pulmonary disease, unspecified; E11.9 Type 2 diabetes mellitus without complications; E78.5 Hyperlipidemia, unspecified; I10 Essential (primary) hypertension; Z79.82 Long term (current) use of aspirin; Z79.899 Other long term (current) drug therapy; Z88.0 Allergy status to penicillin; Z91.048 Other nonmedicinal substance allergy status
CPT/HCPCS: 99284

== ENCOUNTER 2017-11-02 22:51 | Emergency (ER) | payer MEDICARE ==
[2017-11-02] MEDS ORDERED: SODIUM CHLORIDE 0.9% 1,000 ML IV STA (22:53)
[2017-11-02] MEDS ORDERED: AZITHROMYCIN 500 MG in DEXTROSE 5% IN WATER 250 ML IVPB STA ×2 (22:53)
[2017-11-02] MEDS ORDERED: IPRATROPIUM-ALBUTEROL 3 ML NEB INHALATION STA ×2 (22:53→23:54)
[2017-11-02] MEDS ORDERED: methylPREDNISolone SOD SUCCI 125 MG/2 ML VIAL IV STA (22:53)
--- NOTE | 2017-11-02 23:19 | ED ---
General Adult HPI - General Chief complaint: Shortness of Breath Stated complaint: FELY Time Seen by Provider: 11/02/17 22:53 Source: EMS, RN notes reviewed, old records reviewed Mode of arrival: EMS Limitations: no limitations - History of Present Illness Initial comments: This is an 79-year-old female the ER today. Patient was essay for evaluation of shortness of breath 3 hours of significant shortness of breath prior to arrival. Family does check outpatient often and she was noted to the fine at dinnertime but developed shortness of breath as the day went on. Patient states she feels much better currently. Patient brought in by EMS who to give breathing treatment. Per family patient does have pacemaker with history of mild heart failure and COPD - Related Data Home Medications Medication Instructions Recorded Confirmed Aspirin 81 mg PO HS 04/16/14 02/17/17 Furosemide [Lasix] 40 mg PO DAILY 04/16/14 02/17/17 Lisinopril [Zestril] 5 mg PO DAILY 04/16/14 02/17/17 Metoprolol Tartrate 50 mg PO BID 04/16/14 02/17/17 Simvastatin 20 mg PO HS 04/16/14 02/17/17 Cholecalciferol [Vitamin D3] 2,000 unit PO HS 01/31/17 02/17/17 Loperamide [Imodium] 2 mg PO BID 01/31/17 02/17/17 Caldesene Powder 81-15% 1 applic TOPICAL BID 02/08/17 02/17/17 Acetaminophen Tab [Tylenol Tab] 650 mg PO Q4H 02/17/17 02/17/17 Cyanocobalamin [Vitamin B-12 1,000 mcg SQ TU 02/17/17 02/17/17 Injection] Previous Rx's Medication Instructions Recorded Naproxen [Naprosyn] 250 mg PO BID PRN #1 tab 02/04/17 glipiZIDE [Glucotrol] 5 mg PO DAILY #0 02/04/17 Levofloxacin [Levaquin] 500 mg PO DAILY #7 tab 02/17/17 Allergies Allergy/AdvReac Type Severity Reaction Status Date / Time Penicillins Allergy Swelling Verified 11/02/17 22:59 adhesive AdvReac Unknown Verified 11/02/17 22:59 Review of Systems ROS Statement: Those systems with pertinent positive or pertinent negative responses have been documented in the HPI. ROS Other: All systems not noted in ROS Statement are negative. Past Medical History Past Medical History: COPD, Diabetes Mellitus, Hyperlipidemia, Hypertension Additional Past Medical History / Comment(s): 04/20/14 Pt here today for generator change permanent pacemaker. Other HX: Type [address] JEREL Perales&[place], some short term memory issues. History of Any Multi-Drug Resistant Organisms: None Reported Past Surgical History: Appendectomy, Hernia Repair, Hysterectomy, Joint Replacement, Orthopedic Surgery, Pacemaker Additional Past Surgical History / Comment(s): 04/20/14 Generator change pacemaker. 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 General Exam Limitations: no limitations General appearance: alert, in no apparent distress, anxious Head exam: Present: atraumatic, normocephalic, normal inspection Eye exam: Present: normal appearance, PERRL, EOMI. Absent: scleral icterus, conjunctival injection, periorbital swelling ENT exam: Present: normal exam, mucous membranes moist Neck exam: Present: normal inspection. Absent: tenderness, meningismus, lymphadenopathy Respiratory exam: Present: normal lung sounds bilaterally. Absent: respiratory distress, wheezes, rales, rhonchi, stridor Cardiovascular Exam: Present: regular rate, normal rhythm, normal heart sounds. Absent: systolic murmur, diastolic murmur, rubs, gallop, clicks GI/Abdominal exam: Present: soft, normal bowel sounds. Absent: distended, tenderness, guarding, rebound, rigid Extremities exam: Present: normal inspection, full ROM, normal capillary refill. Absent: tenderness, pedal edema, joint swelling, calf tenderness Back exam: Present: normal inspection Neurological exam: Present: alert, oriented X3, CN II-XII intact Psychiatric exam: Present: normal affect, normal mood Skin exam: Present: warm, dry, intact, normal color. Absent: rash Course Vital Signs 11/02/17 11/02/17 11/02/17 22:56 23:09 23:14 Temperature 97 F L Pulse Rate 68 73 83 Respiratory 22 Rate Blood Pressure 141/76 O2 Sat by Pulse 97 Oximetry 11/03/17 11/03/17 00:15 00:23 Temperature Pulse Rate 93 86 Respiratory Rate Blood Pressure O2 Sat by Pulse Oximetry - Reevaluation(s) Reevaluation #1: 11/03/17 00:05 Patient beginning to have symptoms of anxiety attack. States she is very short of breath, pulse ox is normal, patient has strong no work of breathing Reevaluation #2: 11/03/17 01:18 Patient is in no acute distress with normal amateur pulse ox EKG Findings - EKG Comments: EKG Findings:: EKG shows sinus tachycardia rate of 106, AK 1:30, QRS 108, QTc 443 Medical Decision Making - Medical Decision Making 79 female the ER for evaluation of shortness of breath COPD exacerbation, most anxiety. Patient will be discharged home - Lab Data Result diagrams: 11/02/17 23:14 11/02/17 23:14 Lab Results 11/02/17 11/02/17 11/02/17 Range/Units 23:14 23:14 23:14 WBC 9.0 (3.8-10.6) k/uL RBC 4.84 (3.80-5.40) m/uL Hgb 14.8 (11.4-16.0) gm/dL Hct 43.2 (34.0-46.0) % MCV 89.2 (80.0-100.0) fL MCH 30.6 (25.0-35.0) pg MCHC 34.3 (31.0-37.0) g/dL RDW 13.7 (11.5-15.5) % Plt Count 151 (150-450) k/uL Neutrophils % 59 % Lymphocytes % 28 % Monocytes % 7 % Eosinophils % 3 % Basophils % 1 % Neutrophils # 5.3 (1.3-7.7) k/uL Lymphocytes # 2.6 (1.0-4.8) k/uL Monocytes # 0.6 (0-1.0) k/uL Eosinophils # 0.2 (0-0.7) k/uL Basophils # 0.1 (0-0.2) k/uL Sodium 138 (137-145) mmol/L Potassium 5.2 H (3.5-5.1) mmol/L Chloride 103 (98-107) mmol/L Carbon Dioxide 21 L (22-30) mmol/L Anion Gap 14 mmol/L BUN 25 H (7-17) mg/dL Creatinine 1.10 H (0.52-1.04) mg/dL Est GFR (CKD-EPI)AfAm 52 (>60 ml/min/1.73 sqM) Est GFR (CKD-EPI)NonAf 45 (>60 ml/min/1.73 sqM) Glucose 156 H (74-99) mg/dL Calcium 9.6 (8.4-10.2) mg/dL Magnesium 2.0 (1.6-2.3) mg/dL Total Bilirubin 1.3 (0.2-1.3) mg/dL AST 26 (14-36) U/L ALT 13 (9-52) U/L Alkaline Phosphatase 69 (38-126) U/L Total Creatine Kinase 36 (30-135) U/L CK-MB (CK-2) 0.4 (0.0-2.4) ng/mL CK-MB (CK-2) Rel Index 1.1 Troponin I <0.012 (0.000-0.034) ng/mL NT-Pro-B Natriuret Pep pg/mL Total Protein 6.8 (6.3-8.2) g/dL Albumin 4.1 (3.5-5.0) g/dL 11/02/17 Range/Units 23:14 WBC (3.8-10.6) k/uL RBC (3.80-5.40) m/uL Hgb (11.4-16.0) gm/dL Hct (34.0-46.0) % MCV (80.0-100.0) fL MCH (25.0-35.0) pg MCHC (31.0-37.0) g/dL RDW (11.5-15.5) % Plt Count (150-450) k/uL Neutrophils % % Lymphocytes % % Monocytes % % Eosinophils % % Basophils % % Neutrophils # (1.3-7.7) k/uL Lymphocytes # (1.0-4.8) k/uL Monocytes # (0-1.0) k/uL Eosinophils # (0-0.7) k/uL Basophils # (0-0.2) k/uL Sodium (137-145) mmol/L Potassium (3.5-5.1) mmol/L Chloride (98-107) mmol/L Carbon Dioxide (22-30) mmol/L Anion Gap mmol/L BUN (7-17) mg/dL Creatinine (0.52-1.04) mg/dL Est GFR (CKD-EPI)AfAm (>60 ml/min/1.73 sqM) Est GFR (CKD-EPI)NonAf (>60 ml/min/1.73 sqM) Glucose (74-99) mg/dL Calcium (8.4-10.2) mg/dL Magnesium (1.6-2.3) mg/dL Total Bilirubin (0.2-1.3) mg/dL AST (14-36) U/L ALT (9-52) U/L Alkaline Phosphatase (38-126) U/L Total Creatine Kinase (30-135) U/L CK-MB (CK-2) (0.0-2.4) ng/mL CK-MB (CK-2) Rel Index Troponin I (0.000-0.034) ng/mL NT-Pro-B Natriuret Pep 317 pg/mL Total Protein (6.3-8.2) g/dL Albumin (3.5-5.0) g/dL - Radiology Data Radiology results: report reviewed (Chest x-rays negative), image reviewed Disposition Clinical Impression: Acute exacerbation of chronic obstructive airways disease, Anxiety Disposition: HOME SELF-CARE Condition: Good Instructions: Acute Bronchitis (ED) Is patient prescribed a controlled substance at d/c from ED?: No Referrals: Ronak Parker DO [Primary Care Provider] - 1-2 days
[2017-11-02 23:33] LABS: Basophils # (A) 0.1 k/uL (0-0.2); Basophils % (A) 1 %; Eosinophils # (A) 0.2 k/uL (0-0.7); Eosinophils % (A) 3 %; HCT 43.2 % (34.0-46.0); HGB 14.8 gm/dL (11.4-16.0); Lymphocytes # (A) 2.6 k/uL (1.0-4.8); Lymphocytes % (A) 28 %; MCH 30.6 pg (25.0-35.0); MCHC 34.3 g/dL (31.0-37.0); MCV 89.2 fL (80.0-100.0); Mean Platelet Volume 10.1; Monocytes # (A) 0.6 k/uL (0-1.0); Monocytes % (A) 7 %; Neutrophils # (A) 5.3 k/uL (1.3-7.7); Neutrophils % (A) 59 %; Platelet Count 151 k/uL (150-450); RBC 4.84 m/uL (3.80-5.40); RDW 13.7 % (11.5-15.5)
[2017-11-02 23:47] LABS: Albumin 4.1 g/dL (3.5-5.0); Calcium 9.6 mg/dL (8.4-10.2); Creatine Kinase 36 U/L (30-135); Potassium 5.2 mmol/L (3.5-5.1); Total Bilirubin 1.3 mg/dL (0.2-1.3); Total Protein 6.8 g/dL (6.3-8.2)
[2017-11-02] MEDS ORDERED: LORazepam 2 MG/ML INJ IV STA (23:54)
[2017-11-02] MEDS ORDERED: ONDANSETRON 4 MG/2 ML VIAL IVP STA (23:54)
[2017-11-03 00:01] LABS: Creatine Kinase MB 0.4 ng/mL (0.0-2.4); Troponin I <0.012 ng/mL (0.000-0.034)
[2017-11-03 01:27] VITALS: BP 114/57; PULSE 77; RESP 18; TEMP 97.2
--- NOTE | 2017-11-03 01:58 | XR ---
EXAMINATION TYPE: XR chest 1V portable DATE OF EXAM: 11/03/2017 COMPARISON: 01/31/2017 HISTORY: Difficulty breathing TECHNIQUE: Single frontal view of the chest is obtained. FINDINGS: There is minimal vascular congestion. Heart is probably enlarged. There is left axillary p acemaker with the lead tips over the right ventricle. There are sternal wires. There is poor inspirat ion. There is blunting of costophrenic angles. IMPRESSION: Mild congestive heart failure with pleural effusions. No change compared to old exam.
== END 2017-11-03 02:00 | disposition home or self-care (01) ==
LOC: EC 22:51
DX: J44.1 Chronic obstructive pulmonary disease with (acute) exacerbation (principal); F41.9 Anxiety disorder, unspecified; E11.9 Type 2 diabetes mellitus without complications; E78.5 Hyperlipidemia, unspecified; I10 Essential (primary) hypertension; Z79.82 Long term (current) use of aspirin; Z79.899 Other long term (current) drug therapy; Z88.0 Allergy status to penicillin; Z91.048 Other nonmedicinal substance allergy status; Z95.0 Presence of cardiac pacemaker; Z95.2 Presence of prosthetic heart valve; Z53.29 Procedure and treatment not carried out because of patient's decision for other reasons
CPT/HCPCS: 36415; 94640 ×2; 93005; 83880; 80053; 82550; 82553; 83735; 84484; 85025; 87040; 71045; 99285; 96365; 96366 ×2; 96375 ×2; J2060; J2930; J0456